=== PATIENT | female | born 1945 | race Caucasian/White ===

== ENCOUNTER 2017-09-02 06:11 | Emergency (ER) | payer MEDICARE, OTHER ==
[2017-09-02] MEDS ORDERED: Diphtheria,Pertussis(Acell),Tetanus Vaccine 0.5 ML SDV IM ONE (06:39)
--- NOTE | 2017-09-02 06:40 | EDM.PDOC ---
<Karine Self - Last Filed: 09/02/17 06:35> ED HPI GENERAL MEDICAL PROBLEM - General Chief Complaint: Upper Extremity Injury/Pain Stated Complaint: FALL VIA NORTH Time Seen by Provider: 09/02/17 06:35 Source of Information: Reports: Patient History Limitations: Reports: No Limitations - History of Present Illness INITIAL COMMENTS - FREE TEXT/NARRATIVE: pt arrived with pain in the upper humerus area. She was out walking her dog and fell. 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: IV/IO, Other Medication(s) - Related Data Allergies Allergy/AdvReac Type Severity Reaction Status Date / Time No Known Allergies Allergy Verified 09/02/17 06:16 Home Meds: Home Meds Hydrochlorothiazide 25 mg PO DAILY 09/02/17 [History] Labetalol HCl [Labetalol] 200 mg PO BID 09/02/17 [History] Lisinopril [Prinivil] 20 mg PO DAILY 09/02/17 [History] Simvastatin [Zocor] 40 mg PO BEDTIME 09/02/17 [History] glipiZIDE [Glipizide ER] 2.5 mg PO DAILY 09/02/17 [History] Past Medical History Cardiovascular History: Reports: Hypertension 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 ) Ears: Reports: No Symptoms Nose: Reports: No Symptoms Mouth/Throat: Reports: No Symptoms Respiratory: Reports: No Symptoms Cardiovascular: Reports: No Symptoms GI/Abdominal: Reports: No Symptoms Genitourinary: Reports: No Symptoms Musculoskeletal: Reports: No Symptoms, Other (pt has pain in the rt upper arm. ) Skin: Reports: No Symptoms ED EXAM, GENERAL - Physical Exam Exam: See Below Free Text/Narrative:: pt arrived with pain in her rt upper humerus after a fall while walking her dog. Exam Limited By: No Limitations General Appearance: Alert, Mild Distress Ears: Normal TMs Nose: Normal Inspection Throat/Mouth: Normal Inspection Head: Atraumatic Neck: Normal Inspection Respiratory/Chest: No Respiratory Distress Cardiovascular: Regular Rate, Rhythm GI/Abdominal: Soft, Non-Tender (Female) Exam: Deferred Rectal (Female) Exam: Deferred Back Exam: Normal Inspection Extremities: Other (pain in the upper humerus. ) Neurological: Alert, Oriented, Normal Cognition Course - Vital Signs Last Recorded V/S: Last Vital Signs Temp 96.8 F 09/02/17 06:13 Pulse 51 L 09/02/17 06:13 Resp 18 09/02/17 06:13 BP 188/85 H 09/02/17 06:13 Pulse Ox 94 L 09/02/17 06:13 - Orders/Labs/Meds Orders: Active Orders 24 hr Category Date Time Status Vaccines to be Administered [RC] PER UNIT ROUTINE Care 09/02/17 06:39 Active Humerus Rt [CR] Stat Exams 09/02/17 06:33 Taken Shoulder Comp Rt [CR] Stat Exams 09/02/17 06:33 Taken Meds: Medications Discontinued Medications Generic Name Dose Route Start Last Admin Trade Name Freq PRN Reason Stop Dose Admin Diphtheria/Tetanus/Acell Pertussis 0.5 ml 09/02/17 06:39 09/02/17 06:58 Adacel IM 09/02/17 06:40 0.5 ml .ONCE ONE Administration Fentanyl 100 mcg 09/02/17 07:07 09/02/17 07:15 Sublimaze IVPUSH 09/02/17 07:08 100 mcg ONETIME ONE Administration Departure - Departure Disposition: DC/Tfer to [facility] 02 Clinical Impression: Humeral fracture Qualifiers: Encounter type: initial encounter Humerus Location: shaft Fracture type: closed Fracture morphology: transverse Fracture alignment: displaced Laterality : right Qualified Code(s): S42.321A - Displaced transverse fracture of shaft of humerus, right arm, initial encounter for closed fracture - Discharge Information Referrals: PCP,None [Primary Care Provider] - Forms: ED Department Discharge <You Patten - Last Filed: 09/02/17 07:37> ED TRAUMA EXTREMITY PROCEDURES - Splinting Right Upper Extremity Splint Site: Right humerus Pre-Procedure NV Status: Normal Post-Procedure NV Status: Normal Splint Material: Fiberglass Splint Design: Sugar Tong (Reverse) Applied & Form Fitted By: Provider, Nurse Provider Post-Splint Application NV Check: NV Status Normal, Good Position Complications: No Course - Re-Assessments/Exams Free Text/Narrative Re-Assessment/Exam: Took over care from Dr. Self at 7 AM 09/02/17 07:37 Departure - Departure Time of Disposition: 07:36 Condition: Good - Assessment/Plan Plan: Assessment Acuity = acute Site and laterality = right mid shaft humerus fracture closed Etiology = secondary to fall at home Manifestations = pain Location of injury = Home Lab values = x-ray describes fracture above Plan Discussed case with orthopedics on-call [facility] Kesha Glover kindly accepted the patient in transfer will be transported via EMS ground sugar tong splint in place Patient was in agreement with the plan all questions were answered, . This note was dictated using [employer] [place] voice recognition software please call with any questions.
[2017-09-02] MEDS ORDERED: fentaNYL 100 MCG/2 ML SDV IVPUSH ONE (07:07)
--- NOTE | 2017-09-02 08:47 | CR ---
Right shoulder and humerus. There is a displaced oblique fracture through the proximal diaphysis of the humerus. Glenohumeral lucian nt appears intact. No additional fractures are seen. Impression: 1. Displaced fracture of the proximal humerus.
== END 2017-09-02 08:10 ==
LOC: JP.ED 06:11
DX: S42.321A Displaced transverse fracture of shaft of humerus, right arm, initial encounter for closed fracture (principal); I10 Essential (primary) hypertension; Z79.899 Other long term (current) drug therapy; W19.XXXA Unspecified fall, initial encounter; Y92.009 Unspecified place in unspecified non-institutional (private) residence as the place of occurrence of the external cause
CPT/HCPCS: 29105; 29125; 73030; 73060; 90471; 90715; 96374; 99282; 99285; J3010

== ENCOUNTER 2023-07-29 10:56 | Emergency (ER) | payer MEDICARE, OTHER ==
[2023-07-29 11:48] LABS: BASOPHILS PERCENT AUTO 0.2 % (0.1-1.3); EOSINOPHILS ABSOLUTE AUTO 0.06 K/uL (0.00-0.40); EOSINOPHILS PERCENT AUTO 0.6 % (0.0-5.4); HEMATOCRIT 32.9 % (34.3-46.0); HEMOGLOBIN 10.9 g/dL (11.2-15.5); IMMATURE GRAN ABSOLUTE AUTO 0.05 K/uL (0.00-0.23); IMMATURE GRAN PERCENT AUTO 0.5 % (0.0-0.7); LYMPHOCYTES ABSOLUTE AUTO 0.79 K/uL (0.8-3.3); MEAN CORPUSCULAR HEMOGLOBIN 29.1 pg (31.6-35.5); MEAN CORPUSCULAR HGB CONC 33.1 g/dL (31.6-35.5); MEAN CORPUSCULAR VOLUME 87.7 fL (81.4-99.0); MONOCYTES ABSOLUTE AUTO 0.65 K/uL (0.20-0.90); MONOCYTES PERCENT AUTO 6.6 % (3.3-12.6); NEUTROPHILS ABSOLUTE AUTO 8.32 K/uL (1.0-7.6); NEUTROPHILS PERCENT AUTO 84.1 % (40.0-78.1); PLATELET COUNT,PLT 198 K/uL (130-375); RED BLOOD CELL COUNT 3.75 M/uL (3.77-5.24); WHITE BLOOD CELL COUNT,WBC 9.9 K/uL (3.2-11.0)
[2023-07-29 11:54] LABS: BASOPHILS ABSOLUTE AUTO 0.02 K/uL (0.00-0.10)
[2023-07-29 12:09] LABS: A/G RATIO 1.1 (1.2-2.2); ALANINE AMINOTRANSFERASE,ALT 7 U/L (12-78); ALBUMIN 3.2 g/dL (3.4-5.0); ALKALINE PHOSPHATASE 88 U/L (46-116); ASPARTATE AMNIOTRANSFERASE,AST 8 U/L (15-37); BILIRUBIN TOTAL 0.8 mg/dL (0.2-1.0); BLOOD UREA NITROGEN,BUN 29 mg/dL (7-18); CALCIUM 8.3 mg/dL (8.5-10.1); CARBON DIOXIDE,CO2 26 mmol/L (21-32); CHLORIDE,CL 99 mmol/L (100-108); CREATININE 2.2 mg/dL (0.6-1.0); ESTIMATED GFR 22 mL/min (>60); GLUCOSE RANDOM 330 mg/dL (74-106); POTASSIUM,K 4.3 mmol/L (3.6-5.2); PROTEIN TOTAL,TP 6.1 g/dL (6.4-8.2); SODIUM,NA 135 mmol/L (140-148)
[2023-07-29 12:10] LABS: INFLUENZA A NAA NEGATIVE (NEGATIVE); INFLUENZA B NAA NEGATIVE (NEGATIVE); RESPIRATORY SYNCYTIAL VIR NAA NEGATIVE (NEGATIVE)
[2023-07-29 12:12] LABS: ANION GAP 14.3 mmol/L (5.0-14.0)
[2023-07-29 12:13] LABS: CORONAVIRUS COVID-19 NAA POSITIVE (NEGATIVE)
[2023-07-29] MEDS ORDERED: Sodium Chloride 0.9% 500 ML IV SCH (13:00)
== END 2023-07-29 14:55 | disposition home or self-care (01) ==
LOC: JP.ED 10:56
DX: U07.1 COVID-19 (principal); F03.90 Unspecified dementia, unspecified severity, without behavioral disturbance, psychotic disturbance, mood disturbance, and anxiety; I10 Essential (primary) hypertension; E11.9 Type 2 diabetes mellitus without complications; Z87.891 Personal history of nicotine dependence; Z79.4 Long term (current) use of insulin; Z79.82 Long term (current) use of aspirin; Z79.899 Other long term (current) drug therapy
CPT/HCPCS: 0241U; 36415; 80053; 83605; 85025; 96360; 99285; J7030

== ENCOUNTER 2023-11-03 20:21 | Emergency (ER) | payer MEDICARE ==
[2023-11-03 20:41] LABS: BASOPHILS ABSOLUTE AUTO 0.03 K/uL (0.00-0.10); BASOPHILS PERCENT AUTO 0.6 % (0.1-1.3); EOSINOPHILS ABSOLUTE AUTO 0.25 K/uL (0.00-0.40); EOSINOPHILS PERCENT AUTO 4.7 % (0.0-5.4); HEMATOCRIT 30.4 % (34.3-46.0); IMMATURE GRAN PERCENT AUTO 0.4 % (0.0-0.7); LYMPHOCYTES PERCENT AUTO 22.6 % (11.4-47.7); MEAN CORPUSCULAR HEMOGLOBIN 30.5 pg (31.6-35.5); MEAN CORPUSCULAR HGB CONC 32.9 g/dL (31.6-35.5); MEAN CORPUSCULAR VOLUME 92.7 fL (81.4-99.0); MONOCYTES ABSOLUTE AUTO 0.45 K/uL (0.20-0.90); MONOCYTES PERCENT AUTO 8.5 % (3.3-12.6); NEUTROPHILS ABSOLUTE AUTO 3.36 K/uL (1.0-7.6); NEUTROPHILS PERCENT AUTO 63.2 % (40.0-78.1); PLATELET COUNT,PLT 177 K/uL (130-375); RED BLOOD CELL COUNT 3.28 M/uL (3.77-5.24); WHITE BLOOD CELL COUNT,WBC 5.3 K/uL (3.2-11.0)
[2023-11-03 21:01] LABS: A/G RATIO 1.2 (1.2-2.2); ALANINE AMINOTRANSFERASE,ALT 14 U/L (12-78); ALBUMIN 3.1 g/dL (3.4-5.0); ALKALINE PHOSPHATASE 52 U/L (46-116); ASPARTATE AMNIOTRANSFERASE,AST 12 U/L (15-37); BILIRUBIN TOTAL 0.6 mg/dL (0.2-1.0); BLOOD UREA NITROGEN,BUN 32 mg/dL (7-18); CALCIUM 8.5 mg/dL (8.5-10.1); CARBON DIOXIDE,CO2 28 mmol/L (21-32); CHLORIDE,CL 102 mmol/L (100-108); CREATININE 2.3 mg/dL (0.6-1.0); EST CRCL DRUG DOSING (CG) 16.68 mL/min; ESTIMATED GFR 21 mL/min (>60); GLUCOSE RANDOM 165 mg/dL (74-106); POTASSIUM,K 3.7 mmol/L (3.6-5.2); PROTEIN TOTAL,TP 5.7 g/dL (6.4-8.2); SODIUM,NA 139 mmol/L (140-148)
[2023-11-03 21:15] LABS: ANION GAP 12.7 mmol/L (5.0-14.0); IMMATURE GRAN ABSOLUTE AUTO 0.02 K/uL (0.00-0.23)
== END 2023-11-03 22:31 ==
LOC: JP.ED 20:21
DX: S00.33XA Contusion of nose, initial encounter (principal); I10 Essential (primary) hypertension; E11.9 Type 2 diabetes mellitus without complications; Z79.82 Long term (current) use of aspirin; Z79.4 Long term (current) use of insulin; Z79.899 Other long term (current) drug therapy; W19.XXXA Unspecified fall, initial encounter
CPT/HCPCS: 36415; 70450; 72125; 76377; 80053; 85025; 99285

== ENCOUNTER 2024-04-22 13:36 | Inpatient (IN) | payer MEDICARE ==
[2024-04-22] MEDS: Sodium Chloride 0.9% 1,000 ML IV SCH (13:45)
[2024-04-22 13:58] LABS: BASOPHILS ABSOLUTE AUTO 0.03 K/uL (0.00-0.10); BASOPHILS PERCENT AUTO 0.4 % (0.1-1.3); EOSINOPHILS ABSOLUTE AUTO 0.24 K/uL (0.00-0.40); EOSINOPHILS PERCENT AUTO 3.2 % (0.0-5.4); HEMATOCRIT 34.9 % (34.3-46.0); HEMOGLOBIN 12.1 g/dL (11.2-15.5); IMMATURE GRAN ABSOLUTE AUTO 0.03 K/uL (0.00-0.23); IMMATURE GRAN PERCENT AUTO 0.4 % (0.0-0.7); LYMPHOCYTES PERCENT AUTO 22.5 % (11.4-47.7); MEAN CORPUSCULAR HEMOGLOBIN 30.6 pg (31.6-35.5); MEAN CORPUSCULAR HGB CONC 34.7 g/dL (31.6-35.5); MEAN CORPUSCULAR VOLUME 88.1 fL (81.4-99.0); MONOCYTES ABSOLUTE AUTO 0.23 K/uL (0.20-0.90); NEUTROPHILS ABSOLUTE AUTO 5.33 K/uL (1.0-7.6); NEUTROPHILS PERCENT AUTO 70.5 % (40.0-78.1); PLATELET COUNT,PLT 330 K/uL (130-375); RED BLOOD CELL COUNT 3.96 M/uL (3.77-5.24); WHITE BLOOD CELL COUNT,WBC 7.6 K/uL (3.2-11.0)
[2024-04-22] MEDS ORDERED: Lactated Ringers 1,000 ML IV SCH (14:00)
[2024-04-22] MEDS ORDERED: Morphine 4 MG/ML Syringe IVPUSH PRN (14:05)
[2024-04-22] MEDS: LORazepam 2 MG/ML SDV IVPUSH ONE (14:12)
[2024-04-22 14:16] LABS: LACTIC ACID 3.2 mmol/L (0.4-2.0)
[2024-04-22 14:19] LABS: A/G RATIO 1.1 (1.2-2.2); ALANINE AMINOTRANSFERASE,ALT 18 U/L (12-78); ALBUMIN 3.4 g/dL (3.4-5.0); ALKALINE PHOSPHATASE 66 U/L (46-116); ANION GAP 16.3 mmol/L (5.0-14.0); ASPARTATE AMNIOTRANSFERASE,AST 17 U/L (15-37); BILIRUBIN TOTAL 0.7 mg/dL (0.2-1.0); BLOOD UREA NITROGEN,BUN 35 mg/dL (7-18); C-REACTIVE PROTEIN 0.54 mg/dL (<0.50); CALCIUM 9.1 mg/dL (8.5-10.1); CARBON DIOXIDE,CO2 21 mmol/L (21-32); CHLORIDE,CL 103 mmol/L (100-108); CREATININE 2.3 mg/dL (0.6-1.0); EST CRCL DRUG DOSING (CG) 14.25 mL/min; ESTIMATED GFR 21 mL/min (>60); GLUCOSE RANDOM 184 mg/dL (74-106); POTASSIUM,K 3.9 mmol/L (3.6-5.2); PROTEIN TOTAL,TP 6.4 g/dL (6.4-8.2); SODIUM,NA 140 mmol/L (140-148)
[2024-04-22] MEDS: cefTRIAXone 2 GM in Sodium Chloride 0.9% 100 ML IV SCH (14:35)
[2024-04-22] MEDS ORDERED: oxyCODONE 5 MG Tab PO PRN (15:38)
[2024-04-22] MEDS ORDERED: Haloperidol Lactate 2 MG/ML Oral Soln 15 ML Bottle SL PRN (15:38)
[2024-04-22] MEDS ORDERED: Acetaminophen 325 MG Tab PO PRN (15:38)
[2024-04-22] MEDS ORDERED: Ondansetron 4 MG/2 ML SDV IV PRN (15:38)
[2024-04-22] MEDS ORDERED: Polyethylene Glycol 3350 Powder 17 GM Packet PO PRN (15:38)
[2024-04-22] MEDS ORDERED: Sodium Chloride 0.9% 10 ML Syringe FLUSH PRN (15:38)
[2024-04-22] MEDS: LORazepam ORAL Concentrate 1MG/0.5ML U/D PO PRN (18:05)
[2024-04-22] MEDS: Morphine 10 MG/0.5 ML Oral Syringe BUCCAL PRN (21:48)
[2024-04-23] MEDS: Scopalamine 1mg/3day Transdermal Patch TRDERM PRN (14:58)
[2024-04-24] MEDS ORDERED: VERIFY SCOP PATCH TOP SCH (09:00)
== END 2024-04-23 19:21 | disposition expired | DRG 951 ==
LOC: JP.ED 13:36 → JP.OB 14:45 → JP.MS 21:22
PROVIDERS: ADMIT Hospitalist; ATTEND Hospitalist
DX: Z51.5 Encounter for palliative care (principal); I26.99 Other pulmonary embolism without acute cor pulmonale; I95.9 Hypotension, unspecified; Z66 Do not resuscitate; E11.9 Type 2 diabetes mellitus without complications; F03.C0 Unspecified dementia, severe, without behavioral disturbance, psychotic disturbance, mood disturbance, and anxiety; I10 Essential (primary) hypertension; Z79.4 Long term (current) use of insulin; Z79.82 Long term (current) use of aspirin; Z79.899 Other long term (current) drug therapy
CPT/HCPCS: 36415; 80053; 83605; 84145; 84484; 85025; 85379; 86140; 87040 ×2; 93005; 96374; 96375; 99285; J0696; J2060; J3490; J7030; 93010; A9270-GY